=== PATIENT | female | born 1940 ===

== ENCOUNTER 2025-07-19 12:29 | Outpatient (CLI) | payer MEDICARE ==
[~2025-07-19 12:29] MED LIST: Iopamidol 370 76% 100 ML VIAL ONE
== END 2025-07-19 12:30 | disposition home or self-care (01) ==
LOC: CSHCT 12:29
PROVIDERS: ATTEND Physician Assistant Medical
DX: I35.1 Nonrheumatic aortic (valve) insufficiency (principal); I77.810 Thoracic aortic ectasia; K22.9 Disease of esophagus, unspecified
CPT/HCPCS: 71275; Q9967